=== PATIENT | male | born 1975 | race African-American/Black ===

== ENCOUNTER 2017-09-06 07:32 | Emergency (ER) | payer OTHER ==
[~2017-09-06] VITALS: Ht 177.8 cm; Wt 99.8 kg
[2017-09-06 07:32] VITALS: BP_SYST 161
[2017-09-06 08:20] VITALS: BP_SYST 156
== END 2017-09-06 08:20 | disposition home or self-care (01) ==
LOC: SED 07:32
DX: R68.84 Jaw pain (principal); I10 Essential (primary) hypertension
CPT/HCPCS: 99283